=== PATIENT | male | born 1990 | race Caucasian/White ===

== ENCOUNTER 2016-12-10 00:59 | Emergency (ER) | payer BC ==
[~2016-12-10] VITALS: Ht 167.6 cm; Wt 102.1 kg
[2016-12-10 01:21] LABS: BILIRUBIN NEGATIVE (NEGATIVE); BLOOD NEGATIVE (NEGATIVE); CLARITY CLEAR (CLEAR); COLOR YELLOW (YELLOW); GLUCOSE NEGATIVE (NEGATIVE); KETONE NEGATIVE (NEGATIVE); LEUKO ESTERASE NEGATIVE (NEGATIVE); NITRITE NEGATIVE (NEGATIVE); PH 6.5 (5.0-9.0); UROBILINOGEN 0.2 E.U./dl (0.2-1.0)
[2016-12-10 01:32] LABS: BASO # 0.1 10*3/uL (0.0-0.1); BASO % 0.5 % (0.0-1.0); EOS # 0.2 10*3/uL (0.0-0.4); EOS % 1.9 % (1.0-4.0); HEMATOCRIT 44.9 % (42.0-52.0); HEMOGLOBIN 15.3 g/dl (14.0-18.0); LYMPH # 3.5 10*3/uL (1.3-4.4); LYMPH % 28.4 % (27.0-41.0); MEAN CELL VOLUME 91.4 fl (80.0-94.0); MEAN CORPUSCULAR HGB 31.2 pg (27.0-31.0); MEAN CORPUSCULAR HGB CONC 34.1 g/dl (33.0-37.0); MEAN PLATELET VOLUME 10.7 fl (9.6-12.3); MONO # 0.6 10*3/uL (0.1-1.0); MONO % 5.2 % (3.0-9.0); NEUT # 7.8 10*3/uL (2.3-7.9); NEUT % 63.8 % (47.0-73.0); PLATELET COUNT AUTOMATED 182 10*3/uL (130-400); RED BLOOD COUNT 4.91 10*6/uL (4.50-5.90); RED CELL DISTRI WIDTH 12.6 % (0-14.5); WHITE BLOOD COUNT 12.2 10*3/uL (4.8-10.8)
[2016-12-10 01:38] LABS: BACTERIA TRACE; RBC 0-2 rbc/hpf (0-2); WBC 0-2 wbc/hpf (0-5)
[2016-12-10 01:50] LABS: ALBUMIN 3.7 gm/dl (3.1-4.5); ALKALINE PHOSPHATASE 76 U/L (45-117); BUN 13 mg/dl (7-24); CHLORIDE 102 mmol/L (98-107); LIPASE 83 U/L (73-393); POTASSIUM 3.7 mmol/L (3.5-5.1); SGOT/AST 22 IU/L (3-35); SGPT/ALT 39 U/L (12-78); SODIUM 139 mmol/L (136-145); TOTAL PROTEIN 7.5 gm/dL (6.4-8.2)
== END 2016-12-10 02:43 | disposition home or self-care (01) ==
LOC: ED 00:59
PROVIDERS: Student in an Organized Health Care Education/Training Program
DX: R10.9 Unspecified abdominal pain (principal)

== ENCOUNTER 2016-12-11 09:32 | Inpatient (IN) | payer BC ==
[~2016-12-11] VITALS: Ht 167.6 cm; Wt 110.8 kg
[2016-12-11] VITALS (8 sets, daily range): BP systolic 101–143; BP diastolic 41–88
[2016-12-11 09:53] LABS: BASO # 0.1 10*3/uL (0.0-0.1); BASO % 0.3 % (0.0-1.0); EOS # 0.1 10*3/uL (0.0-0.4); EOS % 0.3 % (1.0-4.0); HEMATOCRIT 48.3 % (42.0-52.0); HEMOGLOBIN 16.5 g/dl (14.0-18.0); LYMPH # 1.3 10*3/uL (1.3-4.4); LYMPH % 6.4 % (27.0-41.0); MEAN CELL VOLUME 91.1 fl (80.0-94.0); MEAN CORPUSCULAR HGB 31.1 pg (27.0-31.0); MEAN CORPUSCULAR HGB CONC 34.2 g/dl (33.0-37.0); MEAN PLATELET VOLUME 10.5 fl (9.6-12.3); MONO # 0.9 10*3/uL (0.1-1.0); MONO % 4.5 % (3.0-9.0); NEUT # 17.6 10*3/uL (2.3-7.9); NEUT % 88.1 % (47.0-73.0); PLATELET COUNT AUTOMATED 199 10*3/uL (130-400); RED CELL DISTRI WIDTH 12.8 % (0-14.5)
[2016-12-11 10:02] LABS: ACT PARTIAL THROMBO TIME 24.5 SECONDS (20.8-31.5); INTERNATIONAL NORM RATIO 1.1 (2.0-3.5)
[2016-12-11 10:09] LABS: ALBUMIN 4.1 gm/dl (3.1-4.5); ALKALINE PHOSPHATASE 86 U/L (45-117); BUN 9 mg/dl (7-24); CHLORIDE 98 mmol/L (98-107); CREATININE 1.12 mg/dL (0.70-1.30); LIPASE 420 U/L (73-393); SGOT/AST 15 IU/L (3-35); SGPT/ALT 31 U/L (12-78); SODIUM 135 mmol/L (136-145); TOTAL PROTEIN 8.3 gm/dL (6.4-8.2)
--- NOTE | 2016-12-11 10:21 | NUR ---
PT RETURNING FROM CT AT THIS TIME.---JOSIE MADERA RN
[2016-12-11 10:55] LABS: BILIRUBIN NEGATIVE (NEGATIVE); BLOOD TRACE-INTACT (NEGATIVE); CLARITY SL CLOUDY (CLEAR); COLOR YELLOW (YELLOW); GLUCOSE NEGATIVE (NEGATIVE); KETONE NEGATIVE (NEGATIVE); LEUKO ESTERASE NEGATIVE (NEGATIVE); NITRITE NEGATIVE (NEGATIVE); PH 6.5 (5.0-9.0); SPECIFIC GRAVITY 1.025 (1.005-1.030); UROBILINOGEN 0.2 E.U./dl (0.2-1.0)
[2016-12-11 11:25] LABS: BACTERIA TRACE; EPITHELIAL CELLS 0-2; MUCOUS 2+; RBC 0-2 rbc/hpf (0-2)
--- NOTE | 2016-12-11 17:00 | NUR ---
A 26, admitted to 5E, under the services of KIRAN Varela DO with a diagnosis of ACUTE APPENDICITIS, SEPSIS. Chief complaint is ABDOMINAL PAIN. Patient arrived via ambulatory from ER. Monitor applied. Initial assessment completed. Vital signs taken and recorded. KIRAN VARELA DO notified of admission to the unit. Orders received. See assessment for past medical history, medications and allergies. Patient and/or family oriented to unit. [facility] visitation policy reviewed. Clothing/patient valuable form completed. MELANIE CARRILLO
--- NOTE | 2016-12-11 17:35 | NUR ---
DR RUIZ IN TO SEE PT AT THIS TIME.
--- NOTE | 2016-12-11 20:42 | NUR ---
IN BED AWAKE ALERT AND ORIENTED X3, MOTHER AT BEDSIDE. STATES UPON MOVEMENT PAIN IF 4/10. NO S/S OF DISTRESS. AMANUEL DRAIN NOTED TO BE DRAINING SEROSANGUINOUS FLUID. WILL CONT TO MONITOR. CALL LIGHT IN REACH.
--- NOTE | 2016-12-11 22:13 | NUR ---
PT C/O PAIN OF 09/24 TO ABD . IV TYLENOL GIVEN AT THIS TIME. WILL CONT TO MONITOR. CALL LIGHT IN REACH.
--- NOTE | 2016-12-11 22:46 | NUR ---
DR PATEL CALLED IN REGARDING PT STATUS. NEW ORDER RECEIVED FOR CLEAR LIQUID DIET-SIPS.
--- NOTE | 2016-12-11 23:38 | NUR ---
PT GIVEN IV MORPHINE FOR C/O PAIN TO ABD OF 09/24 AFTER TYLENOL NOT BEING EFFECTIVE. ALSO PT HAD AN EMESIS AFTER HE SAYS COUGHING UP PHLEGM. MEDICATED WITH IV ZOFRAN. WILL CONT TO MONITOR. CALL LIGHT IN REACH.
[2016-12-12] VITALS: BP 107/50
--- NOTE | 2016-12-12 00:06 | NUR ---
PT STATES HE HAS HIS PAIN MEDICATION WITH HIM AND THAT HE IS NOT GIVING IT UP SO WE CAN LOCK IT UP BECAUSE THE LAST TIME HE WAS HERE IT WAS "STOLEN". WILL NOTIFY THE CORRECTIONAL SUPERVISING COOK AND DOCTOR.
--- NOTE | 2016-12-12 00:38 | NUR ---
PT STATES PAIN IS NOW A 5/10 TO ABDOMEN AFTER HAVING MORPHINE. IV ZOFRAN EFF. WILL CONT TO MONITOR. CALL LIGHT IN REACH.
--- NOTE | 2016-12-12 02:10 | NUR ---
PT C/O NAUSEA AND PAIN OF 09/24. NOT YET TIME FOR HIS PRN PAIN MEDS OR ZOFRAN. SPOKE TO DR PATEL AND NEW ORDERS RECEIVED.
--- NOTE | 2016-12-12 02:21 | NUR ---
IV ZOFRAN AND IV MORPHINE GIVEN AT THIS TIME ORDERED FOR ONE TIME DOSE. WILL CONT TO MONITOR. CALL LIGHT IN REACH.
--- NOTE | 2016-12-12 03:18 | NUR ---
[facility] CALLED AND STATED THAT ADDING ZOFRAN 8MG EVERY 6 HOURS PRN WOULD EXCEED THE MAX DAILY DOSE. WHEN DR PATEL ORDERED THIS HE STATED THAT IT WOULD NOT. WILL NOTIFY HIM IN AM.
--- NOTE | 2016-12-12 03:21 | NUR ---
PT RESTING QUIETLY AT THIS TIME IN BED. WILL CONT TO MONITOR. CALL LIGHT IN REACH.
[2016-12-12 04:00] VITALS: BP 120/65
--- NOTE | 2016-12-12 06:17 | NUR ---
IV ZOFRAN GIVEN FOR C/O NAUSEA AND IV MORPHINE GIVEN FOR C/O PAIN TO ABD OF 08/24. ALSO ICE PACK APPLIED ORDERED. WILL CONT TO MONITOR. CALL LIGHT IN REACH.
[2016-12-12 06:28] LABS: BASO % 0.1 % (0.0-1.0); LYMPH % 5.7 % (27.0-41.0); MEAN CELL VOLUME 93.2 fl (80.0-94.0); MEAN CORPUSCULAR HGB CONC 34.3 g/dl (33.0-37.0); MEAN PLATELET VOLUME 11.6 fl (9.6-12.3); MONO # 1.3 10*3/uL (0.1-1.0); MONO % 7.4 % (3.0-9.0); NEUT # 14.7 10*3/uL (2.3-7.9); NEUT % 86.1 % (47.0-73.0); PLATELET COUNT AUTOMATED 145 10*3/uL (130-400); RED BLOOD COUNT 4.25 10*6/uL (4.50-5.90)
[2016-12-12 06:31] LABS: HEMATOCRIT 39.6 % (42.0-52.0); HEMOGLOBIN 13.6 g/dl (14.0-18.0)
[2016-12-12 07:01] LABS: BUN 15 mg/dl (7-24); CHLORIDE 103 mmol/L (98-107); CHOLESTEROL 135 mg/dL (<200); CREATININE 1.05 mg/dL (0.70-1.30); MAGNESIUM 2.2 mg/dL (1.5-2.1); POTASSIUM 3.9 mmol/L (3.5-5.1); SGPT/ALT 22 U/L (12-78); SODIUM 136 mmol/L (136-145); TRIGLYCERIDES 74 mg/dl (<150); VLDL CHOLESTEROL 15 mg/dL (6-40)
[2016-12-12 07:08] LABS: ALKALINE PHOSPHATASE 66 U/L (45-117); FREE T4 1.36 ng/dl (0.76-1.46); HDL CHOLESTEROL 41 mg/dl (40-60); LDL CHOLESTEROL 79 mg/dL (9-159); SGOT/AST 11 IU/L (3-35); THYROID STIM HORMONE (HS) 0.494 uIU/ml (0.358-4.75); TOTAL PROTEIN 7.3 gm/dL (6.4-8.2)
[2016-12-12 08:00] VITALS: BP 126/76
[2016-12-12 08:25] LABS: VITAMIN D, 25-HYDROXY 9.2 ng/mL (30-100)
--- NOTE | 2016-12-12 10:00 | NUR ---
PATIENT WITH CLEAR LUNGS, C/O PAIN IN ABD 8/10, RLQ. SEROSANG. DRAINAGE IN AMANUEL DRAIN. TURNER CATHETER INTACT, NO EDMA.
--- NOTE | 2016-12-12 10:03 | NUR ---
Patient 1 day post op appendectomy. AMANUEL drain noted to be draining serosanguinous drainage. Surgical incision proximal to the umbilicus intact and no drainage noted.
--- NOTE | 2016-12-12 10:15 | NUR ---
DR DANIEL IN TO SEE PATIENT. CHANGEING MORPHINE TO PERCOCET. NEW ORDER TO REMOVE TURNER.
--- NOTE | 2016-12-12 10:51 | NUR ---
PERCOCET GIVEN FOR PAIN IN ABD, 09/24.
--- NOTE | 2016-12-12 11:00 | NUR ---
TURNER CATHETER REMOVED WITHOUT PROBLEMS. URINE DARK YELLOW, NO SEDIMENT, CLEAR.
--- NOTE | 2016-12-12 11:13 | NUR ---
PERCOCET EFFECTIVE, PATIENT WALKING IN HALLWAY WITHOUT PROBLEMS.
[2016-12-12 12:00] VITALS: BP 130/64
[2016-12-12 16:00] VITALS: BP 148/85
--- NOTE | 2016-12-12 16:53 | NUR ---
PATIENT REQUESTED ZOFRAN FOR NAUSEA AND PERCOCET FOR PAIN 8/10 IN RIGHT ABDOMINAL AREA.
--- NOTE | 2016-12-12 17:50 | NUR ---
PAIN MEDICATION AND ZOFRAN APPEARS TO BE EFFECTIVE, PATIENT LYING ON BED WITH EYES CLOSED, RESTING.
--- NOTE | 2016-12-12 19:29 | NUR ---
10CC OF SEROSANG. DRAINAGE FROM AMANUEL DRAIN. PATIENT LYING IN BED RESTING. NO COMPLAINTS OF PAIN AT PRESENT TIME
[2016-12-12 20:00] VITALS: BP 133/77
[2016-12-13] VITALS: BP 141/72
[2016-12-13 06:24] LABS: BASO # 0.1 10*3/uL (0.0-0.1); BASO % 0.3 % (0.0-1.0); EOS % 0.2 % (1.0-4.0); HEMATOCRIT 38.6 % (42.0-52.0); HEMOGLOBIN 12.8 g/dl (14.0-18.0); LYMPH % 12.6 % (27.0-41.0); MEAN CELL VOLUME 94.8 fl (80.0-94.0); MEAN CORPUSCULAR HGB 31.4 pg (27.0-31.0); MEAN CORPUSCULAR HGB CONC 33.2 g/dl (33.0-37.0); MEAN PLATELET VOLUME 10.7 fl (9.6-12.3); MONO # 1.2 10*3/uL (0.1-1.0); MONO % 7.6 % (3.0-9.0); NEUT # 12.5 10*3/uL (2.3-7.9); NEUT % 78.7 % (47.0-73.0); PLATELET COUNT AUTOMATED 160 10*3/uL (130-400); RED BLOOD COUNT 4.07 10*6/uL (4.50-5.90); RED CELL DISTRI WIDTH 13.1 % (0-14.5); WHITE BLOOD COUNT 15.9 10*3/uL (4.8-10.8)
[2016-12-13 06:57] LABS: BUN 20 mg/dl (7-24); CHLORIDE 104 mmol/L (98-107); CREATININE 0.88 mg/dL (0.70-1.30); POTASSIUM 3.9 mmol/L (3.5-5.1); SODIUM 138 mmol/L (136-145)
[2016-12-13 08:00] VITALS: BP 134/80
[2016-12-13 12:00] VITALS: BP 106/72; BP 130/64
[2016-12-13 16:00] VITALS: BP 148/80
[2016-12-13 20:00] VITALS: BP 131/58
--- NOTE | 2016-12-13 20:00 | NUR ---
ASSUMED CARE OF PATIENT. ASSESSMENT COMPLETE. RESTING IN BED. DAUGHTER AT BEDSIDE. CALL LIGHT IN REACH. WILL CONTINUE TO MONITOR.
--- NOTE | 2016-12-13 20:00 | NUR ---
ASSUMED CARE OF PATIENT. ASSESSMENT COMPLETE. RESTING IN BED. VISITOR AT BEDSIDE. NO VOICED COMPLAINTS AT THIS TIME. CALL LIGHT IN REACH. WILL CONTINUE TO MONITOR.
--- NOTE | 2016-12-13 23:28 | NUR ---
PT RECEIVED RESTORIL TO AID SLEEP.
[2016-12-14] VITALS: BP 131/68
--- NOTE | 2016-12-14 00:20 | NUR ---
PT IS RESTING COMFORTABLY IN BED.
--- NOTE | 2016-12-14 02:00 | NUR ---
SLEEPING. NO SIGNS OF DISTRESS NOTED. CM INTACT. IVF INFUSING PER ORDER. CALL LIGHT IN REACH. WILL CONTINUE TO MONITOR.
--- NOTE | 2016-12-14 06:07 | NUR ---
PT RECEIVED PERCOCET FOR PAIN RATED 6/10 IN ABDOMINAL SURGICAL INCISION SITES.
[2016-12-14 08:00] VITALS: BP 140/68
--- NOTE | 2016-12-14 09:00 | NUR ---
Prison Guard in to talk to patient. Patient states lives at home with mom. There are few steps in the home. Physician: none Pharmacy: [email or web address] Home health services: none Patient's level of ADLs: INDEPENDENT Patient has working utilities: all working DME: no Follow-up physician's appointment after d/c: will be made by hospitalist nurse director upon discharge Does patient want to access PORTAL?: no Discharge plan disucussed with patient, patient lives at home with mom, is independent in adls and ambulation, drives, works, patient states he will be going home when able and denies any home needs. JEROME PEREZ
[2016-12-14 12:00] VITALS: BP 131/84
--- NOTE | 2016-12-14 12:09 | NUR ---
PT REPORTED BOWEL MOVEMENT TODAY. PER PT, LARGE AMOUNT, DARK COLORED, AND DIAARHEA.
[2016-12-14 14:50] LABS: BASO # 0.1 10*3/uL (0.0-0.1); BASO % 0.5 % (0.0-1.0); EOS # 0.2 10*3/uL (0.0-0.4); EOS % 1.6 % (1.0-4.0); HEMATOCRIT 37.3 % (42.0-52.0); HEMOGLOBIN 12.6 g/dl (14.0-18.0); LYMPH # 3.1 10*3/uL (1.3-4.4); LYMPH % 28.7 % (27.0-41.0); MEAN CELL VOLUME 92.1 fl (80.0-94.0); MEAN CORPUSCULAR HGB 31.1 pg (27.0-31.0); MEAN CORPUSCULAR HGB CONC 33.8 g/dl (33.0-37.0); MEAN PLATELET VOLUME 9.8 fl (9.6-12.3); MONO # 0.8 10*3/uL (0.1-1.0); MONO % 7.2 % (3.0-9.0); NEUT # 6.7 10*3/uL (2.3-7.9); NEUT % 61.4 % (47.0-73.0); PLATELET COUNT AUTOMATED 204 10*3/uL (130-400); RED BLOOD COUNT 4.05 10*6/uL (4.50-5.90); RED CELL DISTRI WIDTH 12.7 % (0-14.5); WHITE BLOOD COUNT 10.8 10*3/uL (4.8-10.8)
[2016-12-14 16:00] VITALS: BP 144/81
--- NOTE | 2016-12-14 17:01 | NUR ---
PT REQUESTED MEDICATOIN FOR POST-OP PAIN. RATED AT 7 OUT OF 10. CONSTANT ACHING AND SHARP WHEN MOVING ABOUT.
[2016-12-14] MEDS ORDERED: AUGMENTIN 875875 MG PO (18:13)
[2016-12-14] MEDS ORDERED: Vitamin D PO (18:13)
[2016-12-14] MEDS ORDERED: NATURE'S BLEND F1 MG PO (18:13)
[2016-12-14] MEDS ORDERED: PERCOCET 5-3251 EACH PO (18:13)
--- NOTE | 2016-12-14 18:32 | NUR ---
Discharge instructions reviewed with patient/family. Patient receptive and verbalizes understanding. Follow-up care arranged. Written instructions given to patient/family. MIGUEL ÁNGEL BULLOCK
== END 2016-12-14 18:32 | disposition home or self-care (01) | DRG 854 ==
LOC: ED 09:32 → EDHOLD 10:48 → 5E 10:48
PROVIDERS: Emergency Medicine; Internal Medicine; ADMIT Internal Medicine
PROC: 0DTJ4ZZ Resection of Appendix, Percutaneous Endoscopic Approach (ICD-10-PCS; principal; 2016-12-11)
DX: A41.9 Sepsis, unspecified organism (principal); E44.0 Moderate protein-calorie malnutrition; K35.80 Unspecified acute appendicitis; E55.9 Vitamin D deficiency, unspecified; E53.8 Deficiency of other specified B group vitamins; R74.8 Abnormal levels of other serum enzymes; R80.9 Proteinuria, unspecified; E66.09 Other obesity due to excess calories; F17.210 Nicotine dependence, cigarettes, uncomplicated; Z84.89 Family history of other specified conditions; Z71.6 Tobacco abuse counseling; Z68.39 Body mass index [BMI] 39.0-39.9, adult